=== PATIENT | male | born 1965 ===

== ENCOUNTER 2016-12-28 08:13 | Day surgery (SDC) | payer SELFPAY ==
[2016-12-28 09:02] VITALS: BMI 22.8
[2016-12-28 09:24] VITALS: TEMP 97.7
[2016-12-28] MEDS ORDERED: Propofol 10 mg/ml Inj (20 ML) ONE (09:43)
[2016-12-28] MEDS ORDERED: Lactated Ringer's 500 ML IV SCH (10:00)
[2016-12-28 14:05] VITALS: O2SAT 99
[2016-12-28 14:07] VITALS: BP 121/77; PULSE 71; RESP 18
== END 2016-12-28 11:06 | disposition home or self-care (01) ==
LOC: C.ENDO 08:13
PROVIDERS: ATTEND Internal Medicine Gastroenterology
DX: D12.4 Benign neoplasm of descending colon (principal); K57.30 Diverticulosis of large intestine without perforation or abscess without bleeding
CPT/HCPCS: 45388; 82948; 88305; J2704; J7120

== ENCOUNTER 2017-06-27 08:57 | Day surgery (SDC) | payer OTHER ==
[2017-06-27 10:11] VITALS: BMI 22.8
[2017-06-27] MEDS ORDERED: Lidocaine Hydrochloride 5 ML INJ ONE (13:39)
[2017-06-27] MEDS ORDERED: Propofol 10 mg/ml Inj (20 ML) ONE (13:39)
[2017-06-27 14:29] VITALS: TEMP 97.7; O2SAT 100
[2017-06-27 15:39] VITALS: RESP 18
[2017-06-27 15:45] VITALS: BP 117/72; PULSE 61
== END 2017-06-27 14:52 | disposition home or self-care (01) ==
LOC: C.ENDO 08:57
PROVIDERS: ATTEND Internal Medicine
DX: K70.30 Alcoholic cirrhosis of liver without ascites (principal); I85.00 Esophageal varices without bleeding; D12.6 Benign neoplasm of colon, unspecified; K74.60 Unspecified cirrhosis of liver; K29.70 Gastritis, unspecified, without bleeding
CPT/HCPCS: 43235; 82948; J2704